=== PATIENT | female | born 1960 | race Caucasian/White ===

== ENCOUNTER → 2021-08-30 09:41 | Outpatient (CLI) | payer OTHER, SELFPAY ==
[2021-08-30 19:47] LABS: Alanine Aminotransferase 17 IU/L (<35); Albumin 4.6 g/dL (3.5-5.0); Albumin Globulin Ratio 1.3 (1.0-2.8); Alkaline Phosphatase 85 U/L (38-126); Aspartate Aminotransferase 41 IU/L (14-36); BUN Creatinine Ratio 21.3 (6-22); Bilirubin Total 0.5 mg/dL (0.2-1.3); Blood Urea Nitrogen 13 mg/dL (7-17); Calcium 9.6 mg/dL (8.4-10.2); Carbon Dioxide 30 mmol/L (22-32); Chloride 102 mmol/L (98-107); Estimated Glomerular Filt Rate > 60 mL/min (>60); Globulin 3.5 g/dL (1.7-4.1); Glucose 99 mg/dL (80-110); HEMOLYSIS < 15 (0-50); Potassium 4.1 mmol/L (3.4-5.1); Sodium 139 mmol/L (137-145); Total Protein 8.1 g/dL (6.3-8.2)
[2021-08-30 20:10] LABS: Add Manual Diff / Slide Review NO; Basophils Absolute Auto 0 /uL (0-100); Basophils Percent Auto 0.5 % (0-2); Eosinophils Absolute Auto 100 /uL (0-450); Eosinophils Percent Auto 1.9 % (2-4); Hematocrit 42.7 % (36-46); Lymphocytes Absolute Auto 1600 /uL (1100-4500); Lymphocytes Percent Auto 34.7 % (25-40); Mean Corpuscular HGB Conc 32.8 % (30-36); Mean Corpuscular Hemoglobin 28.9 PG (26-34); Mean Corpuscular Volume 88.2 fL (80-100); Monocytes Absolute Auto 400 /uL (0-900); Monocytes Percent Auto 8.4 % (3-14); Neutrophils Absolute Auto 2500 /uL (1500-7000); Neutrophils Percent Auto 54.5 % (50-75); Platelet Count 250 X10^3/uL (150-400); Red Blood Cell Count 4.84 X10^6/uL (4.0-5.2); Red Cell Distribution Width 12.9 % (11.6-14.8); White Blood Cell Count 4.5 X10^3/uL (4.5-11.0)
[2021-08-30 20:42] LABS: TSH w/ Reflex to FT4 1.41 uIU/mL (0.47-4.68)
== END ==
PROVIDERS: PCP Physician Assistant; Visit Provider Physician Assistant
DX: E03.9 Hypothyroidism, unspecified (principal); E78.5 Hyperlipidemia, unspecified; F41.9 Anxiety disorder, unspecified; R03.0 Elevated blood-pressure reading, without diagnosis of hypertension
CPT/HCPCS: 80053; 84443; 85025

== ENCOUNTER → 2021-09-27 08:07 | Outpatient (CLI) | payer OTHER, SELFPAY ==
[2021-09-27 20:13] LABS: Cholesterol 222 mg/dL (140-199); HDL Cholesterol 54 mg/dL (40-60); LDL Cholesterol Calculated 137 mg/dL (<100); Triglycerides 153 mg/dL (35-150)
== END ==
PROVIDERS: PCP Physician Assistant; Visit Provider Physician Assistant
DX: E78.5 Hyperlipidemia, unspecified (principal)
CPT/HCPCS: 80061

== ENCOUNTER → 2021-10-05 09:20 | Outpatient (CLI) | payer OTHER, SELFPAY ==
--- NOTE | 2021-10-05 09:21 | DI.MG.S_ITS ---
BILATERAL DIGITAL SCREENING MAMMOGRAM 3D/2D WITH CAD: 10/05/2021 CLINICAL: Routine screening. Family history of breast cancer. Comparison is made to exams dated: 12/26/2017 mammogram, 01/12/2019 mammogram, 03/31/2019 mammogram, and 07/28/2020 mammogram - outside. The tissue of both breasts is heterogeneously dense. This may lower the sensitivity of mammography. Current study was also evaluated with a Computer Aided Detection (CAD) system. No significant masses, calcifications, or other findings are seen in either breast. There has been no significant interval change. IMPRESSION: NEGATIVE There is no mammographic evidence of malignancy. A 1 year screening mammogram is recommended. This exam was interpreted at Station ID: [id number]. NOTE: For mammograms, a report in lay terms will be sent to the patient. Approximately 15% of breast malignancies will not be visualized mammographically. In the management of a palpable breast mass, a negative mammogram must not discourage biopsy of a clinically suspicious lesion. Electronically Signed By: Amilcar krishna/acacia:10/05/2021 11:07:35 letter sent: Normal Exam ACR BI-RADS Category 1: Negative [id number]
== END ==
PROVIDERS: PCP Physician Assistant; Referring Provider Physician Assistant; Visit Provider Physician Assistant
DX: Z12.31 Encounter for screening mammogram for malignant neoplasm of breast (principal); Z80.3 Family history of malignant neoplasm of breast
CPT/HCPCS: 77063; 77067

== ENCOUNTER → 2022-08-30 09:29 | Outpatient (CLI) | payer OTHER, SELFPAY ==
[2022-08-30 19:29] LABS: Alanine Aminotransferase 19 IU/L (<35); Albumin 4.2 g/dL (3.5-5.0); Albumin Globulin Ratio 1.4 (1.0-2.8); Alkaline Phosphatase 85 U/L (38-126); Aspartate Aminotransferase 23 IU/L (14-36); BUN Creatinine Ratio 17.5 (6-22); Bilirubin Total 0.4 mg/dL (0.2-1.3); Blood Urea Nitrogen 11 mg/dL (7-17); Calcium 9.2 mg/dL (8.4-10.2); Carbon Dioxide 27 mmol/L (22-32); Chloride 101 mmol/L (98-107); Cholesterol 236 mg/dL (140-199); Estimated Glomerular Filt Rate > 60 mL/min (>60); Globulin 2.9 g/dL (1.7-4.1); Glucose 95 mg/dL (80-110); HDL Cholesterol 54 mg/dL (40-60); HEMOLYSIS < 15 (0-50); LDL Cholesterol Calculated 148 mg/dL (<100); Sodium 137 mmol/L (137-145); Total Protein 7.1 g/dL (6.3-8.2); Triglycerides 170 mg/dL (35-150)
[2022-08-30 19:56] LABS: TSH w/ Reflex to FT4 0.14 uIU/mL (0.47-4.68)
[2022-08-30 20:28] LABS: Free T4, Direct Thyroxine 1.67 ng/dL (0.78-2.19)
[2022-09-01 02:32] LABS: Labcorp Hemoglobin (Hb) A1c 5.9 % (4.8-5.6)
[2022-09-03 17:51] LABS: Hep C Virus Ab w/Reflex Quant NEGATIVE s/c (NEGATIVE)
== END ==
PROVIDERS: PCP Physician Assistant; Visit Provider Physician Assistant
DX: E03.9 Hypothyroidism, unspecified (principal); E78.5 Hyperlipidemia, unspecified; R74.01 Elevation of levels of liver transaminase levels; Z11.59 Encounter for screening for other viral diseases
CPT/HCPCS: 80053; 80061; 83036; 84439; 84443; 86803

== ENCOUNTER → 2022-10-26 09:38 | Outpatient (CLI) | payer OTHER, SELFPAY ==
--- NOTE | 2022-10-26 09:41 | DI.MG.S_ITS ---
BILATERAL DIGITAL SCREENING MAMMOGRAM 3D/2D WITH CAD: 10/26/2022 CLINICAL: Routine screening. Family history of breast cancer. Comparison is made to exams dated: 10/05/2021 mammogram - [facility], 07/28/2020 mammogram, and 03/31/2019 mammogram - outside. Both breasts are heterogeneously dense, which may obscure small masses (category c / 51-75% glandular tissue). Current study was also evaluated with a Computer Aided Detection (CAD) system. No significant masses, calcifications, or other findings are seen in either breast. There has been no significant interval change. IMPRESSION: NEGATIVE There is no mammographic evidence of malignancy. A 1 year screening mammogram is recommended. Based on the Tyrer Cuzick model (a risk assessment model) the patient's lifetime risk is 8.6% and her 10 year risk is 3.9%. According to the ACR, ACS, and NCCN guidelines, an annual breast MRI exam along with mammogram is recommended if the patient's lifetime risk is 20% or greater. This exam was interpreted at Station ID: [id number]. NOTE: For mammograms, a report in lay terms will be sent to the patient. Approximately 15% of breast malignancies will not be visualized mammographically. In the management of a palpable breast mass, a negative mammogram must not discourage biopsy of a clinically suspicious lesion. Electronically Signed By: Trav camp/acacia:10/26/2022 10:03:56 letter sent: Normal Exam ACR BI-RADS Category 1: Negative 3341F
--- NOTE | 2022-10-26 09:41 | DI.RAD.S_ITS ---
PROCEDURE: XR DEXA AXIAL SKELETON INDICATIONS: ROUTINE SCREENING; Asymptomatic menopausal state COMPARISON: None. FINDINGS: This blank DEXA report has been sent in error by the PACS system. The correct and complete report will be forthcoming in 1-2 days. Thank you for your patience and understanding. Dictated by: Héctor Cordon M.D. on 10/26/2022 at 14:03 Approved by: Héctor Cordon M.D. on 10/26/2022 at 14:03
--- NOTE | 2022-10-26 10:04 | DI.DEXA.S_ITS ---
Bone Density Report Name: CHRIS GUPTA Age: 62 Sex: Female Ethnicity: White Date of : 1960 Indication: postmenopausal; screening for osteoporosis; Referring Provider: MIRIAN LOCK Study: Bone densitometry was performed. Exam Date: October 26, 2022 Accession number: [id number] Bone Density: Region BMD T-score Z-score Classification AP Spine(L2, L3, L4) 0.951 -1.2 0.5 Osteopenia Femoral Neck (Left) 0.706 -1.3 0.1 Osteopenia Total Hip (Left) 0.850 -0.8 0.4 Normal Femoral Neck (Right) 0.696 -1.4 0.0 Osteopenia Total Hip (Right) 0.828 -0.9 0.2 Normal Total Hip Mean 0.839 -0.9 0.3 Normal World Health Organization criteria for BMD impression classify patients as: Normal (T-score at or above -1.0), Osteopenia (T-score between -1.0 and -2.5), or Osteoporosis (T-score at or below -2.5). 10-year Fracture Risk(1): Major Osteoporotic Fracture 8.3% Hip Fracture 0.7% Reported Risk Factors: [place] (), Neck BMD=0.696, BMI=27.6 (1) FRAX(R) Version 3.08. Fracture probability calculated for an untreated patient. Fracture probability may be lower if the patient has received treatment. Impression: The patient has low bone mass, based on the Right Femoral Neck T-score. The patient has an estimated ten-year risk of hip fracture of 0.7% and an estimated ten-year risk of major fracture of 8.3%, based on the WHO FRAX algorithm. Discussion: BONE DENSITY IS LOW AT ONE OR MORE SKELETAL SITES. This patient's lowest T-score is low at one or more skeletal sites. It meets the World Health Organization's (WHO) criteria for ?low bone mass? (T-score between -1.0 and -2.5). The patient's 10-year risk of fracture as calculated by FRAX is less than the threshold where pharmacological therapy is recommended by the National Osteoporosis Foundation (NOF). However, all treatment decisions require clinical judgment and consideration of individual patient factors, including patient preferences, comorbidities, previous drug use, risk factors not captured in the FRAX model (e.g., frailty, falls, vitamin D deficiency, increased bone turnover, interval significant decline in bone density) and possible under or overestimation of fracture risk by FRAX. The patient should follow a healthful lifestyle (good nutrition with adequate calcium and vitamin D, and appropriate weight-bearing exercise). Follow-Up: Consider repeating this study in 2 to 3 years to reassess this patient's status, or sooner if there is some new clinical indication. Reported by: LAURIE GUEVARA M.D. on 10/26/2022 10:16:00 AM.
== END ==
PROVIDERS: PCP Physician Assistant; Referring Provider Physician Assistant; Visit Provider Physician Assistant
DX: Z12.31 Encounter for screening mammogram for malignant neoplasm of breast (principal); Z80.3 Family history of malignant neoplasm of breast; Z13.820 Encounter for screening for osteoporosis; Z78.0 Asymptomatic menopausal state; M85.851 Other specified disorders of bone density and structure, right thigh
CPT/HCPCS: 77063; 77067; 77080

== ENCOUNTER → 2022-12-03 09:23 | Outpatient (CLI) | payer OTHER, SELFPAY ==
[2022-12-03 20:22] LABS: Cholesterol 238 mg/dL (140-199); HDL Cholesterol 50 mg/dL (40-60); LDL Cholesterol Calculated 149 mg/dL (<100); Triglycerides 193 mg/dL (35-150)
[2022-12-03 20:37] LABS: TSH w/ Reflex to FT4 0.17 uIU/mL (0.47-4.68)
[2022-12-03 22:44] LABS: Free T4, Direct Thyroxine 1.73 ng/dL (0.78-2.19)
== END ==
PROVIDERS: PCP Physician Assistant; Visit Provider Physician Assistant
DX: E03.9 Hypothyroidism, unspecified (principal); E78.5 Hyperlipidemia, unspecified
CPT/HCPCS: 80061; 84439; 84443

== ENCOUNTER → 2023-01-31 09:02 | Outpatient (CLI) | payer OTHER, SELFPAY ==
[2023-01-31 19:27] LABS: Alanine Aminotransferase 18 IU/L (<35); Albumin 4.2 g/dL (3.5-5.0); Albumin Globulin Ratio 1.6 (1.0-2.8); Alkaline Phosphatase 78 U/L (38-126); Aspartate Aminotransferase 26 IU/L (14-36); BUN Creatinine Ratio 19.1 (6-22); Bilirubin Total 0.3 mg/dL (0.2-1.3); Blood Urea Nitrogen 13 mg/dL (7-17); Calcium 9.6 mg/dL (8.4-10.2); Carbon Dioxide 27 mmol/L (22-32); Chloride 99 mmol/L (98-107); Cholesterol 230 mg/dL (140-199); Estimated Glomerular Filt Rate > 60 mL/min (>60); Globulin 2.7 g/dL (1.7-4.1); Glucose 96 mg/dL (80-110); HDL Cholesterol 58 mg/dL (40-60); HEMOLYSIS < 15 (0-50); LDL Cholesterol Calculated 135 mg/dL (<100); Potassium 4.4 mmol/L (3.4-5.1); Sodium 136 mmol/L (137-145); Total Protein 6.9 g/dL (6.3-8.2); Triglycerides 184 mg/dL (35-150)
[2023-01-31 20:03] LABS: TSH w/ Reflex to FT4 6.02 uIU/mL (0.47-4.68)
[2023-01-31 21:02] LABS: Free T4, Direct Thyroxine 1.28 ng/dL (0.78-2.19)
== END ==
PROVIDERS: PCP Physician Assistant; Visit Provider Physician Assistant
DX: E78.5 Hyperlipidemia, unspecified (principal); R74.01 Elevation of levels of liver transaminase levels; E03.9 Hypothyroidism, unspecified
CPT/HCPCS: 80053; 80061; 84439; 84443; 84481

== ENCOUNTER → 2023-05-29 08:54 | Outpatient (CLI) | payer OTHER, SELFPAY ==
[2023-05-29 19:58] LABS: Cholesterol 207 mg/dL (140-199); HDL Cholesterol 54 mg/dL (40-60); LDL Cholesterol Calculated 122 mg/dL (<100); Triglycerides 154 mg/dL (35-150)
[2023-05-29 21:07] LABS: Free T4, Direct Thyroxine 1.76 ng/dL (0.78-2.19)
== END ==
PROVIDERS: PCP Physician Assistant; Visit Provider Physician Assistant
DX: E78.5 Hyperlipidemia, unspecified (principal); E03.9 Hypothyroidism, unspecified
CPT/HCPCS: 80061; 84439; 84443

== ENCOUNTER → 2023-10-03 08:58 | Outpatient (CLI) | payer OTHER, SELFPAY ==
[2023-10-03 20:03] LABS: Alanine Aminotransferase 15 IU/L (<35); Albumin 4.2 g/dL (3.5-5.0); Albumin Globulin Ratio 1.6 (1.0-2.8); Alkaline Phosphatase 71 U/L (38-126); Aspartate Aminotransferase 24 IU/L (14-36); BUN Creatinine Ratio 15.3 (6-22); Bilirubin Total 0.5 mg/dL (0.2-1.3); Blood Urea Nitrogen 11 mg/dL (7-17); Calcium 9.4 mg/dL (8.4-10.2); Carbon Dioxide 28 mmol/L (22-32); Chloride 105 mmol/L (98-107); Cholesterol 214 mg/dL (140-199); Estimated Glomerular Filt Rate > 60 mL/min (>60); Globulin 2.7 g/dL (1.7-4.1); Glucose 97 mg/dL (80-110); HDL Cholesterol 62 mg/dL (40-60); HEMOLYSIS < 15 (0-50); LDL Cholesterol Calculated 119 mg/dL (<100); Potassium 4.1 mmol/L (3.4-5.1); Sodium 137 mmol/L (137-145); Total Protein 6.9 g/dL (6.3-8.2); Triglycerides 166 mg/dL (35-150)
== END ==
PROVIDERS: PCP Physician Assistant; Visit Provider Physician Assistant
DX: E78.5 Hyperlipidemia, unspecified (principal); E03.9 Hypothyroidism, unspecified; R03.0 Elevated blood-pressure reading, without diagnosis of hypertension; Z79.899 Other long term (current) drug therapy
CPT/HCPCS: 80053; 80061; 84439; 84443

== ENCOUNTER → 2023-12-17 09:20 | Outpatient (CLI) | payer OTHER, SELFPAY ==
[2023-12-17 20:30] LABS: Alanine Aminotransferase 18 IU/L (<35); Albumin 4.1 g/dL (3.5-5.0); Albumin Globulin Ratio 1.5 (1.0-2.8); Alkaline Phosphatase 76 U/L (38-126); Aspartate Aminotransferase 27 IU/L (14-36); BUN Creatinine Ratio 16.4 (6-22); Bilirubin Total 0.6 mg/dL (0.2-1.3); Blood Urea Nitrogen 12 mg/dL (7-17); Calcium 9.1 mg/dL (8.4-10.2); Carbon Dioxide 27 mmol/L (22-32); Chloride 103 mmol/L (98-107); Cholesterol 177 mg/dL (140-199); Estimated Glomerular Filt Rate > 60 mL/min (>60); Globulin 2.7 g/dL (1.7-4.1); Glucose 94 mg/dL (80-110); HDL Cholesterol 59 mg/dL (40-60); HEMOLYSIS < 15 (0-50); LDL Cholesterol Calculated 94 mg/dL (<100); Potassium 4.2 mmol/L (3.4-5.1); Sodium 136 mmol/L (137-145); Total Protein 6.8 g/dL (6.3-8.2); Triglycerides 118 mg/dL (35-150)
[2023-12-17 20:50] LABS: TSH w/ Reflex to FT4 3.58 uIU/mL (0.47-4.68)
== END ==
PROVIDERS: PCP Physician Assistant; Visit Provider Physician Assistant
DX: E03.9 Hypothyroidism, unspecified (principal); Z79.899 Other long term (current) drug therapy; E78.5 Hyperlipidemia, unspecified
CPT/HCPCS: 80053; 80061; 84443; 84481

== ENCOUNTER → 2024-01-14 12:50 | Outpatient (CLI) | payer OTHER, SELFPAY ==
--- NOTE | 2024-01-14 12:52 | DI.MG.S_ITS ---
BILATERAL DIGITAL SCREENING MAMMOGRAM 3D/2D WITH CAD: 01/14/2024 CLINICAL: Routine screening. Family history of breast cancer. Comparison is made to exams dated: 10/26/2022 mammogram, 10/05/2021 mammogram - [facility], and 07/28/2020 mammogram - outside. The breasts are heterogeneously dense, which may obscure small masses (category c / 51-75% glandular tissue). Current study was also evaluated with a Computer Aided Detection (CAD) system. No significant masses, calcifications, or other findings are seen in either breast. There has been no significant interval change. IMPRESSION: NEGATIVE There is no mammographic evidence of malignancy. A 1 year screening mammogram is recommended. Based on the Tyrer Cuzick model (a risk assessment model) the patient's lifetime risk is 8.3% and her 10 year risk is 3.8%. According to the ACR, ACS, and NCCN guidelines, an annual breast MRI exam along with mammogram is recommended if the patient's lifetime risk is 20% or greater. This exam was interpreted at Station ID: [id number]. NOTE: For mammograms, a report in lay terms will be sent to the patient. Approximately 15% of breast malignancies will not be visualized mammographically. In the management of a palpable breast mass, a negative mammogram must not discourage biopsy of a clinically suspicious lesion. Electronically Signed By: Trav camp/acacia:01/14/2024 14:08:23 letter sent: Normal Exam ACR BI-RADS Category 1: Negative
== END ==
LOC: MAMMO 12:51
PROVIDERS: PCP Physician Assistant; Referring Provider Physician Assistant; Visit Provider Physician Assistant
DX: Z12.31 Encounter for screening mammogram for malignant neoplasm of breast (principal); Z80.3 Family history of malignant neoplasm of breast; R92.333 Mammographic heterogeneous density, bilateral breasts
CPT/HCPCS: 77063; 77067

== ENCOUNTER → 2024-04-28 09:15 | Outpatient (CLI) | payer OTHER, SELFPAY ==
[2024-04-28 19:47] LABS: Alanine Aminotransferase 21 IU/L (<35); Albumin 4.3 g/dL (3.5-5.0); Albumin Globulin Ratio 1.7 (1.0-2.8); Alkaline Phosphatase 66 U/L (38-126); Aspartate Aminotransferase 28 IU/L (14-36); BUN Creatinine Ratio 15.1 (6-22); Bilirubin Total 0.6 mg/dL (0.2-1.3); Blood Urea Nitrogen 11 mg/dL (7-17); Calcium 9.3 mg/dL (8.4-10.2); Carbon Dioxide 28 mmol/L (22-32); Chloride 105 mmol/L (98-107); Cholesterol 188 mg/dL (140-199); Estimated Glomerular Filt Rate > 60 mL/min (>60); Globulin 2.5 g/dL (1.7-4.1); Glucose 98 mg/dL (80-110); HDL Cholesterol 60 mg/dL (40-60); HEMOLYSIS < 15 (0-50); LDL Cholesterol Calculated 99 mg/dL (<100); Potassium 4.3 mmol/L (3.4-5.1); Sodium 136 mmol/L (137-145); Total Protein 6.8 g/dL (6.3-8.2); Triglycerides 144 mg/dL (35-150)
[2024-04-28 20:18] LABS: TSH w/ Reflex to FT4 3.16 uIU/mL (0.47-4.68)
== END ==
PROVIDERS: PCP Physician Assistant; Visit Provider Physician Assistant
DX: E03.9 Hypothyroidism, unspecified (principal); E78.5 Hyperlipidemia, unspecified; Z79.899 Other long term (current) drug therapy
CPT/HCPCS: 80053; 80061; 84443

== ENCOUNTER 2024-09-19 15:01 | Emergency (ER) | payer OTHER, SELFPAY ==
[2024-09-19 15:13] VITALS: BP 141/71; PULSE 87; RESP 18; TEMP 37.1; O2SAT 97; BMI 26.2
--- NOTE | 2024-09-19 15:20 | DI.RAD.S_ITS ---
PROCEDURE: XR ANKLE LT MIN 3V INDICATIONS: injury/swelling TECHNIQUE: 3 views of the ankle were acquired. COMPARISON: None. FINDINGS: Bones: Oblique fracture through the distal fibula with minimal softening of the fracture lines. Ankle mortise is maintained. Normal bone mineralization Soft tissues: Associated soft tissue swelling IMPRESSION: Oblique distal fibular fracture, probably subacute. Approved by: Sherman Melton M.D. on 09/19/2024 at 14:46
--- NOTE | 2024-09-19 16:06 | ED_ITS ---
<Statement entered by Steve Garcia, DO - 09/19/24 18:18> Dr. Garcia cosign statement I was available for consultation during this patient's emergency department visit. This chart is signed by myself for administrative purposes only. I do not have any direct contact with this patient during this visit. They were seen independently by the APC. HPI - Extremity Injury (Lower) General Chief Complaint: Extremity Injury, Lower Stated Complaint: need xray left ankle sent by [facility] Seen by Provider: 09/19/24 15:38 Source: patient Mode of arrival: Ambulatory History of Present Illness HPI Narrative: Ms. Laird is a very pleasant 63-year-old female with a past medical history of hyperlipidemia, hypothyroidism who presents to the emergency department for left ankle pain that occurred this morning. Patient was outside walking in her garden when she stepped on uneven surface and rolled the left ankle causing her to fall. She did not hit her head or sustain any other injuries. She now has swelling and pain on the lateral aspect of the ankle and is unable to bear weight. She came here from [facility] for x-ray and further evaluation. She has no numbness tingling or weakness of the lower extremity and she has taken 400 mg of ibuprofen. Related Data Home Medications ?Medication ?Instructions ?Recorded ?Confirmed red yeast rice 600 mg capsule 600 mg PO DAILY 11/01/23 12/25/23 Previous Rx's ?Medication ?Instructions ?Recorded levothyroxine 88 mcg tablet 88 mcg PO DAILY #90 tabs 0 04/21/24 atorvastatin 40 mg tablet 80 mg (2 x 40 mg) PO BEDTIME #180 06/25/24 tabs sertraline 50 mg tablet 50 mg PO DAILY #90 tabs 05/10/07 Allergies Allergy/AdvReac Type Severity Reaction Status Date / Time No Known Drug Allergies Allergy Verified 12/25/23 08:26 Review of Systems Review of Systems ROS Unobtainable: All systems reviewed & are unremarkable except as noted in HPI and below Patient History Medical History Zoster Elevated AST (SGOT) Cervical cancer screening Anxiety (~2014) Hypothyroidism (~1988) Family History Father Cancer Sister Fibromyalgia Social History Smoking Status: Never smoker Smoking Status: Never smoker Exam Narrative Exam Narrative: GENERAL: 63 year old patient appears stated age. Well-developed patient, in no acute distress. HEAD: Atraumatic. Normocephalic. NECK: Trachea midline. Cervical ROM intact. CARDIOVASCULAR: Regular rate RESPIRATORY: ?Nonlabored respirations. ?Speaking in clear, full sentences. EXTREMITIES: Edema and ecchymosis of left lateral malleolus with tenderness to palpation. Pain with range of motion of the left ankle. No open wounds. Strong pulses and brisk capillary refill, sensation intact to light touch. NEURO: AOx3. ?Clear speech. ?Moves all 4 extremities appropriately with the exception of left ankle. SKIN: warm, dry. Initial Vital Signs Initial Vital Signs: Vital Signs Temperature 98.8 F 09/19/24 15:13 Pulse Rate 87 09/19/24 15:13 Respiratory Rate 18 09/19/24 15:13 Blood Pressure 141/71 H 09/19/24 15:13 Pulse Oximetry 97 09/19/24 15:13 Oxygen Delivery Method Room Air 09/19/24 15:13 Procedures Orthopedic Splinting/Casting Injury #1: Time of procedure: 16:59 Side: left Lower Extremity Injury Location: ankle Lower Extremity Immobilizer: posterior splint and stirrup splint Other Orthopedic Equipment: crutches Post splinting neuro exam: intact and no change Post splinting vascular exam: no change Placed by: Nursing Course Orders Ordered: ED Orders 09/19/24 15:20 XR ankle LT min 3V Stat Discontinued Medications Acetaminophen (Acetaminophen 325 Mg Tablet) 975 mg PO NOW ONE Stop: 09/19/24 16:22 Last Admin: 09/19/24 16:43 Dose: 975 mg Vital Signs Vital signs: Vital Signs - 8 hr 09/19/24 15:13 Temperature 98.8 F Pulse Rate 87 Respiratory Rate 18 Blood Pressure 141/71 H Pulse Oximetry 97 Oxygen Delivery Method Room Air MDM - Extremity Injury (Lower) Medical Records Attestation: I reviewed the patient's medical records. Imaging Data Left Ankle XR: My Impression: On my independent interpretation there is a fracture of the left distal fibula Radiologist's Impression: PROCEDURE: XR ANKLE LT MIN 3V INDICATIONS: injury/swelling TECHNIQUE: 3 views of the ankle were acquired. COMPARISON: None. FINDINGS: Bones: Oblique fracture through the distal fibula with minimal softening of the fracture lines. Ankle mortise is maintained. Normal bone mineralization Soft tissues: Associated soft tissue swelling IMPRESSION: Oblique distal fibular fracture, probably subacute. Approved by: Sherman Melton M.D. on 09/19/2024 at 14:46 MDM Narrative Medical decision making narrative: 63-year-old female with a past medical history of hyperlipidemia, hypothyroidism who presents to the emergency department for left ankle pain that occurred this morning. Differential diagnosis includes but is not limited to left ankle fracture, sprain, strain, contusion, etc. On exam patient is in no acute distress, nontoxic appearing, vital signs appropriate. Left ankle is tender and swollen over the lateral malleolus, foot is neurovascularly intact. X-ray obtained revealing oblique distal fibular fracture. Patient has extreme pain and inability to bear weight therefore we w ill treat with a posterior short-leg with stirrup, crutches, she declines opioids, she already took ibuprofen we will give Tylenol. Patient is neurovascularly intact after application of splint. Advised to follow up with Orthopedics, rice therapy, ibuprofen/Tylenol, crutches or scooter use. Discussed ED return precautions. Patient her verbalized understanding of all information agreeable with the plan, all questions answered. She is stable for discharge home. Discharge Plan Departure Patient Disposition: Home Clinical Impression: Ankle fracture, left Qualifiers: Encounter type: initial encounter Fracture type: closed Qualified Code(s): S82.892A - Other fracture of left lower leg, initial encounter for closed fracture Fracture of distal end of fibula Qualifiers: Encounter type: initial encounter Fracture type: closed Fracture morphology: other fracture Laterality: left Qualified Code(s): S82.832A - Other fracture of upper and lower end of left fibula, initial encounter for closed fracture Instructions: DI for Ankle Fracture Activity Restrictions/Additional Instructions: Dear Ms. Laird, Thank you for coming to the emergency department. Today you were evaluated for a left ankle injury and your x-ray confirmed that you did break your left ankle, specifically the distal fibula bone. You have been placed into a temporary splint. Please keep the splint clean, dry and intact until he can follow up with the orthopedic surgeon for further management. Please avoid walking on this ankle and use crutches or a scooter for the time being. Please use RICE therapy for your pain in addition to ibuprofen/acetaminophen. Rest the painful area. Ice the area of pain/swelling for at least 15 minutes, 4x a day. Compress the area of swelling using a brace, wrap, or splint if applied. Elevate the painful or swollen extremity by supporting it above the level of the heart with pillows when sitting or laying. Please take Ibuprofen (Motrin/Advil) or Acetaminophen (Tylenol) for pain. These are available over the counter. You may take Ibuprofen 600 mg every 8 hours with food for pain. You may also take Acetaminophen 650 mg every 4-6 hours for pain. Do not exceed 3000 mg of Tylenol a day as this can cause liver damage. Do not drink alcohol with either of these medications. Please follow up with your primary care doctor within the next 2-3 days for ER follow-up. (If you do not have a PCP you can call [phone]. ?to schedule an appointment with an [facility] Primary Care Provider) IF YOU DEVELOP ANY NEW OR WORSENING SYMPTOMS, RETURN TO THE ER! Please read the attached instructions, they highlight more specific treatments and interventions for you at home. Thank you for letting me participate in your care, Briseida Browne PA-C Prescriptions: No Action levothyroxine 88 mcg tablet 88 mcg PO DAILY Qty: 90 1RF atorvastatin 40 mg tablet 80 mg PO BEDTIME MDD 80mg Qty: 180 1RF sertraline 50 mg tablet 50 mg PO DAILY Qty: 90 3RF red yeast rice 600 mg capsule 600 mg PO DAILY Rx Instructions: give with meal/snack Referrals: Nurys Rodriguez PA-C [Primary Care Provider, Medical] Sherman Santos MD [Physician, Orthopedic Surgery] Referral Note: 63 yo healthy female, [facility], seen in ED 09/19/24 Left distal fibula fx Stand Alone Forms: Patient Portal/API
[2024-09-19] MEDS: ACETAMINOPHEN 325 MG TABLET 975 MG PO (16:43)
[2024-09-19 17:05] VITALS: BP 131/68; PULSE 68; PULSE 75; RESP 18; TEMP 36.6; O2SAT 99
== END 2024-09-19 17:10 | disposition home or self-care (01) ==
PROVIDERS: Emergency Provider Physician Assistant; PCP Physician Assistant
DX: S82.832A Other fracture of upper and lower end of left fibula, initial encounter for closed fracture (principal); S82.892A Other fracture of left lower leg, initial encounter for closed fracture; W18.30XA Fall on same level, unspecified, initial encounter
CPT/HCPCS: 29515; 73610; 99283

== ENCOUNTER → 2024-11-03 09:25 | Outpatient (CLI) | payer OTHER, SELFPAY ==
[2024-11-03 19:19] LABS: Add Manual Diff / Slide Review NO; Hematocrit 39.2 % (36-46); Hemoglobin 13.4 g/dL (12.0-16.0); Lymphocytes Absolute Auto 1700 /uL (1100-4500); Mean Corpuscular HGB Conc 34.2 % (30-36); Mean Corpuscular Hemoglobin 30.6 PG (26-34); Mean Corpuscular Volume 89.4 fL (80-100); Platelet Count 236 X10^3/uL (150-400)
[2024-11-03 19:54] LABS: Alanine Aminotransferase 20 IU/L (<35); Albumin 4.3 g/dL (3.5-5.0); Albumin Globulin Ratio 1.5 (1.0-2.8); Alkaline Phosphatase 68 U/L (38-126); Blood Urea Nitrogen 13 mg/dL (7-17); Calcium 9.4 mg/dL (8.4-10.2); Carbon Dioxide 28 mmol/L (22-32); Chloride 100 mmol/L (98-107); Cholesterol 180 mg/dL (140-199); Estimated Glomerular Filt Rate > 60 mL/min (>60); Globulin 2.8 g/dL (1.7-4.1); Glucose 93 mg/dL (70-99); HDL Cholesterol 52 mg/dL (40-60); HEMOLYSIS < 15 (0-50); Potassium 4.4 mmol/L (3.4-5.1); Sodium 136 mmol/L (137-145); Total Protein 7.1 g/dL (6.3-8.2); Triglycerides 165 mg/dL (35-150)
[2024-11-03 20:36] LABS: HIV 1 & 2 Ab/Ag 4th Gen Combo NEGATIVE (NEGATIVE)
[2024-11-03 21:19] LABS: TSH w/ Reflex to FT4 5.64 uIU/mL (0.47-4.68)
[2024-11-03 22:36] LABS: Free T4, Direct Thyroxine 1.53 ng/dL (0.78-2.19)
== END ==
PROVIDERS: PCP Physician Assistant; Visit Provider Physician Assistant
DX: E78.5 Hyperlipidemia, unspecified (principal); Z79.899 Other long term (current) drug therapy; Z11.4 Encounter for screening for human immunodeficiency virus [HIV]; F41.9 Anxiety disorder, unspecified; E03.9 Hypothyroidism, unspecified
CPT/HCPCS: 80053; 80061; 84439; 84443; 85025; 87389

== ENCOUNTER → 2025-01-19 13:43 | Outpatient (CLI) | payer OTHER, SELFPAY ==
--- NOTE | 2025-01-19 13:44 | DI.MG.S_ITS ---
MM screening mammo BI: 01/19/2025. BI-RADS: 1 CLINICAL: 64-year old female for bilateral screening mammogram. Tyrer-Cuzick lifetime risk of 12.9%. Current reported family history of breast cancer: sister. PRIOR EXAMS 01/14/2024, 10/26/2022, 10/05/2021. MAMMOGRAPHY TECHNIQUE: 2D and 3D (tomosynthesis) digital mammographic views obtained, with additional images as needed for full coverage. Current study was also evaluated with a Computer Aided Detection (CAD) system. DENSITY C. The breasts are heterogeneously dense, which may obscure small masses. MAMMOGRAPHY FINDINGS Bilateral: No suspicious mass, asymmetry, microcalcification, or other abnormality seen. IMPRESSION: * No evidence of malignancy. RECOMMENDATIONS Bilateral * Annual screening mammography. OVERALL ASSESSMENT CATEGORY BI-RADS-1: Negative. The [employer] recommends annual screening mammography beginning at age 40 for women with average risk of breast cancer. ELECTRONICALLY SIGNED: Michele Cook M.D. on 01/20/2025 at 07:20:23 AM PT Interpreting Station ID: [id number]
== END ==
LOC: MAMMO 13:44
PROVIDERS: PCP Physician Assistant; Referring Provider Physician Assistant; Visit Provider Physician Assistant
DX: Z12.31 Encounter for screening mammogram for malignant neoplasm of breast (principal); Z80.3 Family history of malignant neoplasm of breast; R92.333 Mammographic heterogeneous density, bilateral breasts
CPT/HCPCS: 77063; 77067

== ENCOUNTER → 2025-03-02 13:03 | Outpatient (CLI) | payer OTHER, SELFPAY ==
[2025-03-02 19:18] LABS: Hematocrit 39.1 % (36-46); Hemoglobin 13.1 g/dL (12.0-16.0); Mean Corpuscular HGB Conc 33.6 % (30-36); Mean Corpuscular Hemoglobin 29.9 PG (26-34); Mean Corpuscular Volume 88.9 fL (80-100); Platelet Count 217 X10^3/uL (150-400)
[2025-03-02 19:43] LABS: Basophils Percent Manual 3.0 % (0-1); Eosinophils Percent Manual 4.0 % (2-4); Lymphocytes Percent Manual 41.0 % (25-45); Monocytes Percent Manual 6.0 % (2-11); Neutrophils Absolute Manual 2116 /uL (3000-5900); Segmented Neutrophils Percent 46.0 % (38-70); Total Cells Counted 100
[2025-03-02 19:44] LABS: RBC Morphology Normal Morphology
[2025-03-02 20:01] LABS: TSH w/ Reflex to FT4 4.88 uIU/mL (0.47-4.68)
[2025-03-02 20:35] LABS: Free T4, Direct Thyroxine 1.41 ng/dL (0.78-2.19)
== END ==
PROVIDERS: PCP Physician Assistant; Visit Provider Physician Assistant
DX: E03.9 Hypothyroidism, unspecified (principal); D70.9 Neutropenia, unspecified
CPT/HCPCS: 84439; 84443; 85025